=== PATIENT | male | born 1960 | race Two or more races ===

== ENCOUNTER 2023-12-17 11:47 | Emergency (ER) | payer OTHER ==
[~2023-12-17] VITALS: Ht 165.1 cm; Wt 83.9 kg
[2023-12-17 12:36] LABS: BASOPHILS # (AUTO) 0.1 K/uL (0.0-0.2); BASOPHILS % (AUTO) 0.8 % (0.0-2.0); EOSINOPHILS # (AUTO) 0.2 K/uL (0.0-0.7); EOSINOPHILS % (AUTO) 2.5 % (0.0-6.0); HEMATOCRIT 44 % (39-51); HEMOGLOBIN 14.9 g/dL (13.5-17.5); LYMPHOCYTES # (AUTO) 1.6 K/uL (0.8-4.8); LYMPHOCYTES % (AUTO) 23.4 % (20.0-44.0); MEAN CORPUSCULAR HEMOGLOBIN 30 PG (26.0-33.0); MEAN CORPUSCULAR HGB CONC 34 g/dl (31.0-36.0); MEAN CORPUSCULAR VOLUME 88 fL (80-96); MONOCYTES # (AUTO) 0.5 K/uL (0.1-1.30); MONOCYTES % (AUTO) 7.4 % (2.0-12.0); NEUTROPHILS # (AUTO) 4.4 K/uL (1.8-8.9); NEUTROPHILS % (AUTO) 65.9 % (43.0-81.0); PLATELET COUNT (AUTO) 237 K/uL (150-450); RED BLOOD CELL COUNT(AUTO) 5.01 MIL/uL (4.5-6.0); RED CELL DISTRIBUTION WIDTH 13.2 % (11.5-15.0); WHITE BLOOD COUNT (AUTO) 6.6 K/uL (4.3-11.0)
[2023-12-17 12:41] LABS: INR 0.97 (0.91-1.10); PARTIAL THROMBOPLASTIN TIME 29.5 SEC (24.3-34.3); PROTHROMBIN TIME 10.3 SECS (9.2-11.1)
[2023-12-17 12:50] LABS: CALCIUM, SERUM 9.8 mg/dL (8.5-10.1); CARBON DIOXIDE 30 mmol/L (21-32); CHLORIDE 98 mmol/L (98-107); GLUCOSE 296 mg/dL (74-106); POTASSIUM 4.3 mmol/L (3.5-5.1); SODIUM SERUM 140 mmol/L (136-145); UREA NITROGEN, BLOOD 19 mg/dL (7-18)
[2023-12-17] MEDS ORDERED: PANT40TA2 PO (12:57)
[2023-12-17] MEDS ORDERED: POLY17PO4 PO (12:57)
[2023-12-17] MEDS ORDERED: ATOR40TA PO (12:57)
[2023-12-17] MEDS ORDERED: INSU100I34 SQ ×3 (12:57)
[2023-12-17] MEDS ORDERED: CHOL200026 PO (12:57)
[2023-12-17] MEDS ORDERED: FURO-145 PO (12:57)
[2023-12-17] MEDS ORDERED: SEMA0.25 SQ (12:57)
[2023-12-17] MEDS ORDERED: CYAN10006 SQ (12:57)
[2023-12-17] MEDS ORDERED: INSU100I26 SQ (12:57)
[2023-12-17] MEDS ORDERED: PSYL822P6 PO (12:57)
[2023-12-17] MEDS ORDERED: MULT-447 PO (12:57)
[2023-12-17] MEDS ORDERED: EMPA25TA PO (12:57)
[2023-12-17] MEDS ORDERED: GABA300C PO (12:57)
[2023-12-17] MEDS ORDERED: ACET-868 PO (12:57)
[2023-12-17] MEDS ORDERED: INSU100V36 SQ (12:57)
[2023-12-17] MEDS ORDERED: CARV3.12 PO (12:57)
[2023-12-17 13:03] LABS: ALANINE AMINOTRANSFERASE 32 U/L (12-78); ALBUMIN 3.7 g/dL (3.4-5.0); ALKALINE PHOSPHATASE 112 U/L (46-116); ASPARTATE AMINOTRANSFERASE 15 U/L (15-37); BILIRUBIN,DIRECT 0.1 mg/dL (0.0-0.2); BILIRUBIN,TOTAL 0.5 mg/dL (0.2-1.0); NT-PRO BNP 83 pg/mL (0-125); TOTAL PROTEIN, SERUM 8.2 g/dL (6.4-8.2)
[2023-12-17 15:00] VITALS: BP 135/82; TEMP 97.8; O2SAT 97
== END 2023-12-17 15:27 ==
LOC: ER 11:55
DX: R07.9 Chest pain, unspecified (principal); K21.9 Gastro-esophageal reflux disease without esophagitis; E11.9 Type 2 diabetes mellitus without complications; I10 Essential (primary) hypertension; E78.5 Hyperlipidemia, unspecified
CPT/HCPCS: 36415; 71045-TC; 80048-TC; 80076-TC; 83880; 84484-TC; 85025-TC; 85730-TC